=== PATIENT | male | born 1930 | race Caucasian/White ===

== ENCOUNTER 2016-11-18 16:27 | Emergency (ER) | payer MEDICARE, OTHER ==
[~2016-11-18 16:27] MED LIST: AMBIEN DPS10 MG PO; ASPERCREME 1141.7 GM TP; ATIVAN-DPS0.5 MG PO; ATIVAN-DPS1 MG PO; CULTURELLE1 CAP PO; DELTASONE DPS10 MG PO; DELTASONE DPS20 MG PO; DIPHENOXYLATE-1 EACH PO; DUONEB DPS3 ML IH; FLAGYL-DPS500 MG PO; FLOMAX DPS0.4 MG PO; FLONASE 0.05% D16 GM IH; FLONASE 0.05% D16 GM NS; HEPARIN SQ; HUMALOG, N100 UNITS/ SQ; HYDROCHLOROTHIA25 MG PO; HYDRODIURIL-DPS25 MG PO; KLOR-CON20 MEQ PO; LASIX DPS20 MG PO; LASIX DPS40 MG PO; LEVAQUIN DPS500 MG PO; LIPITOR DPS20 MG; LIPITOR DPS20 MG PO; LIPO-FLAVONOID1 EACH PO; LOMOTIL-DPS1 TAB PO; LOPRESSOR DPS12.5 MG PO; LOPRESSOR DPS50 MG PO; MAALOX DPS30 ML PO; MAGNESIUM SULFATE IV; MELATONIN3 MG PO; MIRALAX PACKET17 GM PO; MUCINEX600 MG PO; NITROSTAT0.4 MG SL; PEPCID DPS10 MG/ML IV; PEPCID20 MG; PROAIR RESPICL90 MCG IH; PROVENTIL HFA6.7 GM IH; ROBITUSSIN DM D30 ML PO; SEROQUEL25 MG PO; SODIUM CHLORIDE3 ML IH; SURFAK DPS240 MG PO; TEARS NATURAL D15 ML OU; TOPROL XL50 MG PO; TRIMETHOPRIM100 MG PO; TYLENOL325 MG PO; VANCOMYCIN500 MG/20 PO; VIGAMOX3 ML OU; XOPENEX (C1.25 MG/0. IH; ZOLOFT DPS50 MG PO; [UNRECOGNIZED DRUG - OTHER] PO
--- NOTE | 2016-11-20 19:25 | ER ---
ADMIT: 11/18/2016 RM/LOC: [facility] MR#: [id number] [facility] [address] [place] [id number] [place] [address] Emergency Room Report SEX: M AGE: 86 : 1930 DATE: 11/18/2016 HISTORY OF PRESENT ILLNESS: The patient is an 86-year-old, from [facility] [place] assisted living, who is brought in for evaluation of his upper back and neck. He tripped and fell. He shuffles his feet normally, and at the [facility], he was walking on a carpet and then when the feet got to a point where the carpet ended and he had linoleum, he fell. He was reported to have fallen several times in the past. He has had insomnia, dyspnea unspecified, retention of urine, hyperlipidemia, hypokalemia, mood disorder, adjustment disorder with anxiety, and allergic rhinitis. As a matter of fact yesterday, he was at [facility] and was evaluated by them. Given the choice if he wanted to have a catheter or not and he decided not to, but he was by himself, his daughter was not present today. Daughter is asking that we do get a catheter as he is retaining more urine than he did yesterday, and it is causing some discomfort. See T-sheet for further information. KEYON Garcia / Zaid Varela MD / odinl JOB #: [id number] CC: Zaid Varela MD, Attending Physician Poli Cheung DO, Family Physician
[2017-05-07] MEDS ORDERED: NITROSTAT0.4 MG SL (12:41)
[2017-05-07] MEDS ORDERED: VITAMIN D-32000 UNI1 PO (12:42)
[2017-05-07] MEDS ORDERED: QUESTRAN DPS4 GM PO (12:42)
[2017-05-07] MEDS ORDERED: DUONEB DPS3 ML IH (12:42)
[2017-05-07] MEDS ORDERED: FLAGYL-DPS500 MG PO (12:43)
[2017-05-07] MEDS ORDERED: COLACE-DPS100 MG PO (12:43)
== END 2016-11-18 19:02 | disposition home or self-care (01) ==
LOC: ER 16:27
PROC: 0T9B70Z Drainage of Bladder with Drainage Device, Via Natural or Artificial Opening (ICD-10-PCS; principal; 2016-11-18)
DX: S20.229A Contusion of unspecified back wall of thorax, initial encounter (principal); R33.9 Retention of urine, unspecified; Z88.2 Allergy status to sulfonamides; Z79.899 Other long term (current) drug therapy; W18.09XA Striking against other object with subsequent fall, initial encounter; Y92.009 Unspecified place in unspecified non-institutional (private) residence as the place of occurrence of the external cause